=== PATIENT | female | born 1975 | race Caucasian/White ===

== ENCOUNTER 2021-09-16 15:44 | Outpatient (CLI) | payer BC, SELFPAY ==
--- NOTE | 2021-09-16 15:45 | CRLHL7_ITS ---
For Patients: As a result of the Century Cures Act, medical imaging exams and procedure reports are released immediately into your electronic medical record. You may view this report before your referring provider. If you have questions, please contact your health care provider. Indication: Hip pain Technique: Pelvis and left hip 3 views Comparison: None Findings: Bones: Alignment is normal. No fractures or bone lesions. Joint spaces: Joint spaces are preserved. Minimal broad-based spurring at the left femoral head neck junction with subtle subcortical cystic change. Soft tissues: Unremarkable. Impression: Mild CAM impingement left hip. Dictated by Horace Rothman MD @ 09/17/2021 8:32:31 AM (Electronically Signed)
== END 2021-09-16 15:45 | disposition home or self-care (01) ==
LOC: RAD 15:47
PROVIDERS: PCP Physician Assistant Medical; Visit Provider Nurse Practitioner
DX: M25.552 Pain in left hip (principal); M25.852 Other specified joint disorders, left hip
CPT/HCPCS: 73502